=== PATIENT | female | born 1990 | race Caucasian/White ===

== ENCOUNTER → 2018-06-27 | Outpatient (CLI) | payer BC ==
--- NOTE | 2018-06-27 09:59 | US ---
EXAMINATION TYPE: US transvaginal DATE OF EXAM: 06/27/2018 COMPARISON: NONE CLINICAL HISTORY: N94.1 Dyspareunia. Patient states having general pelvic pain during intercourse. TECHNIQUE: Transvaginal (TV). Date of LMP: 06/11/2018, G0 EXAM MEASUREMENTS: Uterus: 6.9 x 4.1 x 3.3 cm Endometrial Stripe: 0.6 cm Right Ovary: 3.3x 2.2 x 2.0 cm Left Ovary: 3.1 x 1.8 x 2.1 cm 1. Uterus: Anteverted wnl 2. Endometrium: wnl 3. Right Ovary: Hypoechoic lesion seen with peripheral vascular flow - 2.1 x 1.4 x 1.5 cm 4. Left Ovary: follicles seen 5. Bilateral Adnexa: wnl 6. Posterior cul-de-sac: free fluid Heterogeneous anteverted uterus is seen. Endometrium is felt within normal limits. Small amount of fr ee fluid is seen in pelvic cul-de-sac on image 31 and on last image saved. Both ovaries are present. There is 2.1 cm oval hypoechoic lesion right ovary with peripheral flow fel t to reflect corpus luteal cyst from recent lobulation given patient's history of last known menstrua l period June 11. Peripheral follicles are scattered throughout the left ovary. IMPRESSION: Small amount of free fluid in pelvis is nonspecific finding favor product of recent ovula tion. No suspicious findings seen to account for patient's symptoms of this dyspareunia.
== END ==
LOC: RADUSWWP 08:59
PROVIDERS: ATTEND Obstetrics & Gynecology
DX: N94.10 Unspecified dyspareunia (principal)
CPT/HCPCS: 76830